=== PATIENT | male | born 1940 | race African-American/Black ===

== ENCOUNTER 2021-05-28 09:19 | Inpatient (IN) | payer MEDICARE ==
[~2021-05-28] VITALS: Ht 167.6 cm; Wt 68.0 kg
[2021-05-28 10:22] LABS: BASOPHILS % 0.4 % (0.0-1.0); EOSINOPHILS % 0.6 % (0.0-6.0); HEMOGLOBIN 8.3 g/dL (14.0-18.0); LYMPHOCYTES # (AUTO) 1.4 (1.0-3.2); LYMPHOCYTES % 19.4 % (18.0-39.1); MEAN CORPUSCULAR HEMOGLOBIN 29.4 pg (28-32); MEAN CORPUSCULAR HGB CONC 31.9 g/dL (31-35); MEAN CORPUSCULAR VOLUME 92.2 fL (81-99); MONOCYTES # (AUTO) 0.6 (0.2-0.8); MONOCYTES % 8.5 % (4.4-11.3); NEUTROPHILS % 68.6 % (38.7-80.0); PLATELET COUNT 213 x10e3/uL (140-360); RED BLOOD COUNT 2.82 x10e6/uL (4.3-5.7); RED CELL DISTRIBUTION WIDTH 17.2 % (11.7-14.4)
[2021-05-28 10:45] LABS: ALBUMIN 2.5 g/dL (3.5-5.0); ALBUMIN/GLOBULIN RATIO 0.6 (0.8-2.0); ANION GAP 16.2 mmol/L (8-16); CALCIUM 8.5 mg/dL (8.4-10.2); CREATININE, SERUM 1.6 mg/dL (0.72-1.25); MAGNESIUM 2.1 MG/DL (1.3-2.1); POTASSIUM 4.2 mmol/L (3.5-5.1)
[2021-05-28 10:52] LABS: CREATINE KINASE MB 0.5 ng/mL (0-5.0)
[2021-05-28 10:54] LABS: INR 1.27; PROTHROMBIN TIME 16.2 seconds (11.9-14.5)
[2021-05-28 10:55] LABS: PARTIAL THROMBOPLASTIN TIME 42.2 seconds (23.8-35.5)
[2021-05-28] MEDS ORDERED: SODIUM CHLORIDE 0.9% 1000ML 1,000 ML IV STA (11:33)
[2021-05-28] MEDS ORDERED: SODIUM CHLORIDE 0.9% 50ML 50 ML ONE (12:32)
[2021-05-28] MEDS ORDERED: IOPAMIDOL 370 MG/ML 200 ML INFUS..BTL INJ ONE (12:33)
[2021-05-28 15:56] LABS: CREATINE KINASE MB 0.5 ng/mL (0-5.0)
[2021-05-28] MEDS ORDERED: MORPHINE SULFATE INJ 2 MG/ML SYR IV PRN (16:45)
[2021-05-28] MEDS ORDERED: ONDANSETRON HCL INJ 2MG/ML 2ML 2 MG/ML VIAL IV PRN ×2 (16:45→20:30)
[2021-05-28 20:00] VITALS: BP 157/78
[2021-05-28] MEDS ORDERED: POLYETHYLENE GLYCOL 3350 17 GM PACK PO PRN (20:30)
[2021-05-28] MEDS ORDERED: HYDRALAZINE HCL 20 MG/ML VIAL IV PRN (20:30)
[2021-05-28] MEDS ORDERED: TEMAZEPAM 7.5 MG CAP PO PRN (20:30)
[2021-05-28] MEDS ORDERED: ACETAMINOPHEN 325 MG TAB PO PRN (20:30)
[2021-05-28] MEDS ORDERED: LACTULOSE SYRUP 20 GM/30 ML UDC PO PRN (21:00)
[2021-05-28] MEDS ORDERED: FAMOTIDINE 20 MG/2 ML VIAL IV SCH (21:00)
[2021-05-28] MEDS ORDERED: NORVASC5 MG PO (22:04)
[2021-05-28] MEDS ORDERED: LEVOFLOXACIN250 MG PO (22:04)
[2021-05-28] MEDS ORDERED: SENOKOTXTRA17.2 MG PO (22:04)
[2021-05-28] MEDS ORDERED: FEOSOL325 MG PO (22:04)
[2021-05-28] MEDS ORDERED: FLOMAX0.4 MG PO (22:04)
[2021-05-28 22:43] VITALS: BP 157/78
[2021-05-29] VITALS (8 sets, daily range): BP systolic 139–157; BP diastolic 58–91
[2021-05-29 01:03] LABS: CREATINE KINASE MB 0.4 ng/mL (0-5.0)
[2021-05-29 06:34] LABS: BASOPHILS % 0.3 % (0.0-1.0); EOSINOPHILS # (AUTO) 0.1 (0.0-0.4); EOSINOPHILS % 0.8 % (0.0-6.0); HEMATOCRIT 23.2 % (38.2-49.6); HEMOGLOBIN 7.4 g/dL (14.0-18.0); LYMPHOCYTES # (AUTO) 1.2 (1.0-3.2); LYMPHOCYTES % 19.8 % (18.0-39.1); MEAN CORPUSCULAR HEMOGLOBIN 29.2 pg (28-32); MEAN CORPUSCULAR HGB CONC 31.9 g/dL (31-35); MEAN CORPUSCULAR VOLUME 91.7 fL (81-99); MONOCYTES # (AUTO) 0.6 (0.2-0.8); MONOCYTES % 9.9 % (4.4-11.3); NEUTROPHILS # (AUTO) 4.2 (2.1-6.9); NEUTROPHILS % 66.6 % (38.7-80.0); PLATELET COUNT 219 x10e3/uL (140-360); RED BLOOD COUNT 2.53 x10e6/uL (4.3-5.7); RED CELL DISTRIBUTION WIDTH 17.2 % (11.7-14.4)
[2021-05-29 07:01] LABS: ALBUMIN 2.1 g/dL (3.5-5.0); ALBUMIN/GLOBULIN RATIO 0.5 (0.8-2.0); CALCIUM 8.1 mg/dL (8.4-10.2); CHOL/HDL RATIO 3.4 (3.9-4.7); CREATININE, SERUM 1.48 mg/dL (0.72-1.25)
[2021-05-29 07:08] LABS: CREATINE KINASE MB 0.4 ng/mL (0-5.0)
[2021-05-29 07:14] LABS: MAGNESIUM 2.1 MG/DL (1.3-2.1); PHOSPHORUS 3.1 MG/DL (2.3-4.7)
[2021-05-29] MEDS: FAMOTIDINE 20 MG TAB PO SCH ×2 (07:30→16:50)
[2021-05-29 07:35] LABS: THYROID STIMULATING HORMONE 2.21 uIU/mL (0.350-4.940)
[2021-05-29] MEDS: POLYETHYLENE GLYCOL 3350 17 GM PACK PO SCH ×2 (09:00→16:50)
[2021-05-29] MEDS: DOCUSATE SODIUM 100 MG CAP PO SCH ×2 (09:00→16:50)
[2021-05-29] MEDS: FERROUS SULFATE 325 MG TAB PO SCH ×2 (09:00→16:50)
[2021-05-29] MEDS: ASCORBIC ACID 500 MG TAB PO SCH ×2 (09:00→16:50)
[2021-05-29] MEDS ORDERED: EPOETIN ALFA-EPBX 10,000 UNIT/ML VIAL SC ONE (12:00)
[2021-05-29] MEDS: SENNOSIDES 8.6 MG TAB PO SCH (16:50)
[2021-05-29] MEDS: TAMSULOSIN HCL 0.4 MG CAP PO SCH (16:50)
[2021-05-29] MEDS: AMLODIPINE BESYLATE 5 MG TAB PO SCH (16:50)
[2021-05-29] MEDS: FUROSEMIDE INJ 10 MG/ML 4 ML VIAL IV SCH (16:50)
[2021-05-30] VITALS (9 sets, daily range): BP systolic 87–143; BP diastolic 45–73
[2021-05-30] MEDS: FAMOTIDINE 20 MG TAB PO SCH ×2 (08:11→17:40)
[2021-05-30] MEDS: FUROSEMIDE INJ 10 MG/ML 4 ML VIAL IV SCH (08:11)
[2021-05-30] MEDS: DOCUSATE SODIUM 100 MG CAP PO SCH ×2 (08:11→17:40)
[2021-05-30] MEDS: FERROUS SULFATE 325 MG TAB PO SCH ×2 (08:11→17:40)
[2021-05-30] MEDS: POLYETHYLENE GLYCOL 3350 17 GM PACK PO SCH ×2 (08:12→17:40)
[2021-05-30] MEDS: TAMSULOSIN HCL 0.4 MG CAP PO SCH (08:12)
[2021-05-30] MEDS: AMLODIPINE BESYLATE 5 MG TAB PO SCH (08:12)
[2021-05-30] MEDS: SENNOSIDES 8.6 MG TAB PO SCH (08:13)
[2021-05-30] MEDS: ASCORBIC ACID 500 MG TAB PO SCH ×2 (08:13→17:40)
[2021-05-31] VITALS (7 sets, daily range): BP systolic 120–146; BP diastolic 52–77
[2021-05-31 05:52] LABS: BASOPHILS % 0.5 % (0.0-1.0); EOSINOPHILS # (AUTO) 0.1 (0.0-0.4); EOSINOPHILS % 1.2 % (0.0-6.0); HEMOGLOBIN 7.4 g/dL (14.0-18.0); LYMPHOCYTES # (AUTO) 1.6 (1.0-3.2); LYMPHOCYTES % 27.8 % (18.0-39.1); MEAN CORPUSCULAR HEMOGLOBIN 29.7 pg (28-32); MEAN CORPUSCULAR HGB CONC 32.2 g/dL (31-35); MEAN CORPUSCULAR VOLUME 92.4 fL (81-99); MONOCYTES # (AUTO) 0.5 (0.2-0.8); MONOCYTES % 8.8 % (4.4-11.3); NEUTROPHILS # (AUTO) 3.4 (2.1-6.9); NEUTROPHILS % 57.5 % (38.7-80.0); PLATELET COUNT 225 x10e3/uL (140-360); RED BLOOD COUNT 2.49 x10e6/uL (4.3-5.7); RED CELL DISTRIBUTION WIDTH 17.2 % (11.7-14.4)
[2021-05-31 06:12] LABS: ALBUMIN 2.2 g/dL (3.5-5.0); ALBUMIN/GLOBULIN RATIO 0.6 (0.8-2.0); ANION GAP 13.9 mmol/L (8-16); CALCIUM 8.1 mg/dL (8.4-10.2); CREATININE, SERUM 1.69 mg/dL (0.72-1.25); PHOSPHORUS 3.6 MG/DL (2.3-4.7); POTASSIUM 3.9 mmol/L (3.5-5.1)
[2021-05-31] MEDS: FERROUS SULFATE 325 MG TAB PO SCH ×2 (07:57→16:52)
[2021-05-31] MEDS: ASCORBIC ACID 500 MG TAB PO SCH ×2 (07:57→16:52)
[2021-05-31] MEDS: POLYETHYLENE GLYCOL 3350 17 GM PACK PO SCH ×2 (07:57→16:52)
[2021-05-31] MEDS: AMLODIPINE BESYLATE 5 MG TAB PO SCH (07:57)
[2021-05-31] MEDS: DOCUSATE SODIUM 100 MG CAP PO SCH ×2 (07:57→16:52)
[2021-05-31] MEDS: FUROSEMIDE INJ 10 MG/ML 4 ML VIAL IV SCH (07:57)
[2021-05-31] MEDS: TAMSULOSIN HCL 0.4 MG CAP PO SCH (07:57)
[2021-05-31] MEDS: SENNOSIDES 8.6 MG TAB PO SCH (07:57)
[2021-05-31] MEDS: FAMOTIDINE 20 MG TAB PO SCH ×2 (07:57→16:52)
[2021-05-31] MEDS ORDERED: ONDANSETRON HCL 4 MG ORAL DISINTEGRATING TAB PO PRN (14:00)
== END 2021-05-31 18:47 | disposition home or self-care (01) | DRG 187 ==
LOC: ER 09:25 → ERHOLD 16:48 → MED/SURG 19:41
PROVIDERS: ADMIT Internal Medicine; ATTEND Internal Medicine
DX: J90 Pleural effusion, not elsewhere classified (principal); I31.3 Pericardial effusion (noninflammatory); R07.2 Precordial pain; F03.90 Unspecified dementia, unspecified severity, without behavioral disturbance, psychotic disturbance, mood disturbance, and anxiety; I10 Essential (primary) hypertension; D63.8 Anemia in other chronic diseases classified elsewhere; N40.1 Benign prostatic hyperplasia with lower urinary tract symptoms; R33.8 Other retention of urine; E11.65 Type 2 diabetes mellitus with hyperglycemia; R74.8 Abnormal levels of other serum enzymes; E78.5 Hyperlipidemia, unspecified; N28.9 Disorder of kidney and ureter, unspecified; I08.0 Rheumatic disorders of both mitral and aortic valves
CPT/HCPCS: 36415; 71045; 71260; 74019; 76705; 80053; 80061; 82550; 82553; 82607; 82728; 82746; 82948; 83036; 83540; 83735; 83880; 84100; 84443; 84466; 84484; 85025; 85045; 85379; 85610; 85730; 93005; 93306; 99251; 99284; J1940; J7030; Q9967; U0002

== ENCOUNTER 2021-06-04 17:25 | Inpatient (IN) | payer MEDICARE ==
[~2021-06-04] VITALS: Ht 167.6 cm; Wt 58.6 kg
[~2021-06-04 17:25] MED LIST: FEOSOL325 MG PO; FLOMAX0.4 MG PO; LEVOFLOXACIN250 MG PO; NORVASC5 MG PO; SENOKOTXTRA17.2 MG PO
[2021-06-04] MEDS ORDERED: ACETAMINOPHEN 325 MG TAB PO ONE ×2 (18:00)
[2021-06-04] MEDS ORDERED: CEFEPIME 1 GM in SODIUM CHLORIDE 0.9% 50ML 50 ML IV ONE (18:00)
[2021-06-04] MEDS ORDERED: ACETAMINOPHEN 325 MG TAB ONE (18:02)
[2021-06-04 18:03] LABS: BASOPHILS % 0.1 % (0.0-1.0); EOSINOPHILS % 0.1 % (0.0-6.0); HEMOGLOBIN 7.2 g/dL (14.0-18.0); LYMPHOCYTES # (AUTO) 1.7 (1.0-3.2); LYMPHOCYTES % 21.5 % (18.0-39.1); MEAN CORPUSCULAR HGB CONC 31.3 g/dL (31-35); MEAN CORPUSCULAR VOLUME 92.7 fL (81-99); MONOCYTES # (AUTO) 0.7 (0.2-0.8); MONOCYTES % 9.5 % (4.4-11.3); NEUTROPHILS # (AUTO) 5.2 (2.1-6.9); NEUTROPHILS % 67.3 % (38.7-80.0); PLATELET COUNT 237 x10e3/uL (140-360); RED BLOOD COUNT 2.48 x10e6/uL (4.3-5.7); RED CELL DISTRIBUTION WIDTH 17.3 % (11.7-14.4)
[2021-06-04] MEDS: SODIUM CHLORIDE 0.9% 1000ML 1,000 ML IV SCH ×3 (18:12→23:30)
[2021-06-04 18:21] LABS: ALBUMIN 2.3 g/dL (3.5-5.0); ALBUMIN/GLOBULIN RATIO 0.5 (0.8-2.0); ANION GAP 17.3 mmol/L (8-16); CREATININE, SERUM 1.68 mg/dL (0.72-1.25); POTASSIUM 4.3 mmol/L (3.5-5.1)
[2021-06-04 18:27] LABS: CREATINE KINASE MB 0.5 ng/mL (0-5.0)
[2021-06-04 18:32] LABS: B-TYPE NATRIURETIC PEPTIDE2 40.1 pg/mL (0-100)
[2021-06-04] MEDS ORDERED: SODIUM CHLORIDE 0.9% 50ML 50 ML ONE (18:57)
[2021-06-04] MEDS ORDERED: IOPAMIDOL 370 MG/ML 200 ML INFUS..BTL INJ ONE (18:57)
[2021-06-04 19:01] LABS: CLARITY,URINE HAZY (CLEAR); COLOR,URINE YELLOW (YELLOW); LEUKOCYTE ESTERASE ,URINE SMALL (NEGATIVE)
[2021-06-04 19:02] LABS: KETONES,URINE NEGATIVE (NEGATIVE); NITRITE,URINE NEGATIVE (NEGATIVE); PROTEIN,URINE DIPSTICK 2+ (NEGATIVE); RBC,URINE 21-50 /HPF (0-5); URINE UROBILINOGEN 0.2 mg/dL (0.2 - 1); WBC,URINE (MAN) >50 /HPF (0-5)
[2021-06-04 19:03] LABS: AMORPHOUS SEDIMENT,URINE FEW (FEW); BACTERIA,URINE MANY /HPF; EPITHELIAL CELLS,URINE FEW /LPF; MUCUS,URINE MODERATE (RARE); YEAST,URINE FEW
[2021-06-04 22:11] VITALS: BP 105/52
[2021-06-05] VITALS (12 sets, daily range): BP systolic 105–150; BP diastolic 51–76
[2021-06-05] MEDS ORDERED: POLYETHYLENE GLYCOL 3350 17 GM PACK PO PRN (01:00)
[2021-06-05] MEDS ORDERED: ONDANSETRON HCL INJ 2MG/ML 2ML 2 MG/ML VIAL IV PRN (01:00)
[2021-06-05] MEDS ORDERED: ACETAMINOPHEN 325 MG TAB PO PRN (01:00)
[2021-06-05] MEDS ORDERED: HYDRALAZINE HCL 20 MG/ML VIAL IV PRN (01:00)
[2021-06-05 05:47] LABS: BASOPHILS % 0.3 % (0.0-1.0); EOSINOPHILS % 0.6 % (0.0-6.0); HEMATOCRIT 22.4 % (38.2-49.6); HEMOGLOBIN 7.1 g/dL (14.0-18.0); LYMPHOCYTES # (AUTO) 1.4 (1.0-3.2); LYMPHOCYTES % 19.6 % (18.0-39.1); MEAN CORPUSCULAR HEMOGLOBIN 29.7 pg (28-32); MEAN CORPUSCULAR HGB CONC 31.7 g/dL (31-35); MEAN CORPUSCULAR VOLUME 93.7 fL (81-99); MONOCYTES # (AUTO) 0.8 (0.2-0.8); MONOCYTES % 11.4 % (4.4-11.3); NEUTROPHILS # (AUTO) 4.6 (2.1-6.9); NEUTROPHILS % 66.4 % (38.7-80.0); PLATELET COUNT 223 x10e3/uL (140-360); RED BLOOD COUNT 2.39 x10e6/uL (4.3-5.7); RED CELL DISTRIBUTION WIDTH 17.2 % (11.7-14.4)
[2021-06-05 06:09] LABS: ALBUMIN 2.1 g/dL (3.5-5.0); ALBUMIN/GLOBULIN RATIO 0.5 (0.8-2.0); ANION GAP 13.9 mmol/L (8-16); CALCIUM 8.6 mg/dL (8.4-10.2); CREATININE, SERUM 1.5 mg/dL (0.72-1.25); POTASSIUM 3.9 mmol/L (3.5-5.1)
[2021-06-05 06:27] LABS: MAGNESIUM 2.1 MG/DL (1.3-2.1); PHOSPHORUS 3.8 MG/DL (2.3-4.7)
[2021-06-05] MEDS: SODIUM CHLORIDE 0.9% 1000ML 1,000 ML IV SCH ×2 (07:13→11:01)
[2021-06-05] MEDS: DOCUSATE SODIUM 100 MG CAP PO SCH ×2 (09:02→16:36)
[2021-06-05] MEDS: CEFTRIAXONE 1 GM in SODIUM CHLORIDE 0.9% 50ML 50 ML IV SCH (09:02)
[2021-06-05] MEDS: FAMOTIDINE 20 MG TAB PO SCH ×2 (09:02→17:36)
[2021-06-05] MEDS ORDERED: DEXTROSE 50% SYRINGE 50 ML IV PRN (12:15)
[2021-06-05 12:46] LABS: FREE T4 (FREE THYROXINE) 0.84 ng/dL (0.8-1.8); THYROID STIMULATING HORMONE 1.77 uIU/mL (0.350-4.940)
[2021-06-05] MEDS: INSULIN LISPRO 100 UNIT/1 ML 3ML VIAL SQ SCH ×2 (16:30→21:00)
[2021-06-05] MEDS: FERROUS SULFATE 325 MG TAB PO SCH (17:36)
[2021-06-05] MEDS: FUROSEMIDE INJ 10 MG/ML 2 ML VIAL IV SCH (17:36)
[2021-06-05] MEDS ORDERED: SENNA-S TABLET PO SCH (21:00)
[2021-06-06] VITALS (8 sets, daily range): BP systolic 122–150; BP diastolic 49–78
[2021-06-06] MEDS: FUROSEMIDE INJ 10 MG/ML 2 ML VIAL IV SCH (06:18)
[2021-06-06] MEDS: INSULIN LISPRO 100 UNIT/1 ML 3ML VIAL SQ SCH ×4 (07:30→21:25)
[2021-06-06 08:10] LABS: ALBUMIN/GLOBULIN RATIO 0.5 (0.8-2.0); ANION GAP 15.9 mmol/L (8-16); CALCIUM 8.1 mg/dL (8.4-10.2); CREATININE, SERUM 1.64 mg/dL (0.72-1.25); POTASSIUM 3.9 mmol/L (3.5-5.1)
[2021-06-06] MEDS: CEFTRIAXONE 1 GM in SODIUM CHLORIDE 0.9% 50ML 50 ML IV SCH (08:55)
[2021-06-06] MEDS: FAMOTIDINE 20 MG TAB PO SCH ×2 (08:55→17:16)
[2021-06-06] MEDS: AMLODIPINE BESYLATE 5 MG TAB PO SCH (08:56)
[2021-06-06] MEDS: TAMSULOSIN HCL 0.4 MG CAP PO SCH (08:56)
[2021-06-06] MEDS: SENNOSIDES 8.6 MG TAB PO SCH (08:56)
[2021-06-06] MEDS: FERROUS SULFATE 325 MG TAB PO SCH ×2 (08:56→17:16)
[2021-06-06] MEDS: DOCUSATE SODIUM 100 MG CAP PO SCH ×2 (08:56→17:00)
[2021-06-06] MEDS ORDERED: SODIUM CHLORIDE 0.9% 250ML 250 ML ONE (08:57)
[2021-06-06] MEDS ORDERED: SENNOSIDES PO SCH (09:00)
[2021-06-06 11:20] LABS: BASOPHILS % 0.3 % (0.0-1.0); EOSINOPHILS # (AUTO) 0.1 (0.0-0.4); EOSINOPHILS % 0.8 % (0.0-6.0); HEMATOCRIT 23.2 % (38.2-49.6); HEMOGLOBIN 7.2 g/dL (14.0-18.0); LYMPHOCYTES # (AUTO) 1.2 (1.0-3.2); LYMPHOCYTES % 19.8 % (18.0-39.1); MEAN CORPUSCULAR HEMOGLOBIN 29.1 pg (28-32); MEAN CORPUSCULAR VOLUME 93.9 fL (81-99); MONOCYTES # (AUTO) 0.5 (0.2-0.8); MONOCYTES % 8.6 % (4.4-11.3); NEUTROPHILS # (AUTO) 4.1 (2.1-6.9); NEUTROPHILS % 68.4 % (38.7-80.0); PLATELET COUNT 252 x10e3/uL (140-360); RED BLOOD COUNT 2.47 x10e6/uL (4.3-5.7); RED CELL DISTRIBUTION WIDTH 17.5 % (11.7-14.4)
[2021-06-07] VITALS (8 sets, daily range): BP systolic 138–165; BP diastolic 61–76
[2021-06-07 06:30] LABS: BASOPHILS % 0.2 % (0.0-1.0); EOSINOPHILS # (AUTO) 0.1 (0.0-0.4); EOSINOPHILS % 0.9 % (0.0-6.0); HEMATOCRIT 22.2 % (38.2-49.6); LYMPHOCYTES # (AUTO) 1.2 (1.0-3.2); LYMPHOCYTES % 22.2 % (18.0-39.1); MEAN CORPUSCULAR HEMOGLOBIN 29.3 pg (28-32); MEAN CORPUSCULAR HGB CONC 31.5 g/dL (31-35); MEAN CORPUSCULAR VOLUME 92.9 fL (81-99); MONOCYTES # (AUTO) 0.5 (0.2-0.8); MONOCYTES % 8.6 % (4.4-11.3); NEUTROPHILS # (AUTO) 3.5 (2.1-6.9); NEUTROPHILS % 64.1 % (38.7-80.0); PLATELET COUNT 229 x10e3/uL (140-360); RED BLOOD COUNT 2.39 x10e6/uL (4.3-5.7); RED CELL DISTRIBUTION WIDTH 17.3 % (11.7-14.4)
[2021-06-07 06:54] LABS: ALBUMIN 2.2 g/dL (3.5-5.0); ALBUMIN/GLOBULIN RATIO 0.6 (0.8-2.0); ANION GAP 15.4 mmol/L (8-16); CALCIUM 8.3 mg/dL (8.4-10.2); CREATININE, SERUM 1.43 mg/dL (0.72-1.25); POTASSIUM 3.4 mmol/L (3.5-5.1)
[2021-06-07] MEDS: INSULIN LISPRO 100 UNIT/1 ML 3ML VIAL SQ SCH ×4 (07:30→21:00)
[2021-06-07] MEDS: CEFTRIAXONE 1 GM in SODIUM CHLORIDE 0.9% 50ML 50 ML IV SCH (08:41)
[2021-06-07] MEDS: FAMOTIDINE 20 MG TAB PO SCH ×2 (08:41→17:41)
[2021-06-07] MEDS: AMLODIPINE BESYLATE 5 MG TAB PO SCH (08:41)
[2021-06-07] MEDS: SENNOSIDES 8.6 MG TAB PO SCH (08:41)
[2021-06-07] MEDS: FERROUS SULFATE 325 MG TAB PO SCH ×2 (08:41→17:41)
[2021-06-07] MEDS: TAMSULOSIN HCL 0.4 MG CAP PO SCH (08:41)
[2021-06-07] MEDS: DOCUSATE SODIUM 100 MG CAP PO SCH ×2 (08:41→17:41)
[2021-06-07] MEDS: EPOETIN ALFA-EPBX 10,000 UNIT/ML VIAL SC SCH (10:34)
[2021-06-07] MEDS ORDERED: LORAZEPAM INJ 2 MG/ML VIAL IV PRN (15:30)
[2021-06-07] MEDS: QUETIAPINE FUMARATE 25 MG TAB PO SCH (21:58)
[2021-06-08] VITALS (8 sets, daily range): BP systolic 106–152; BP diastolic 58–77
[2021-06-08 05:26] LABS: BASOPHILS % 0.2 % (0.0-1.0); EOSINOPHILS # (AUTO) 0.1 (0.0-0.4); HEMATOCRIT 21.3 % (38.2-49.6); LYMPHOCYTES # (AUTO) 1.3 (1.0-3.2); LYMPHOCYTES % 28.9 % (18.0-39.1); MEAN CORPUSCULAR HEMOGLOBIN 29.1 pg (28-32); MEAN CORPUSCULAR HGB CONC 31.5 g/dL (31-35); MEAN CORPUSCULAR VOLUME 92.6 fL (81-99); MONOCYTES # (AUTO) 0.4 (0.2-0.8); MONOCYTES % 8.3 % (4.4-11.3); NEUTROPHILS # (AUTO) 2.6 (2.1-6.9); NEUTROPHILS % 55.8 % (38.7-80.0); PLATELET COUNT 214 x10e3/uL (140-360); RED CELL DISTRIBUTION WIDTH 17.5 % (11.7-14.4)
[2021-06-08 05:33] LABS: HEMOGLOBIN 6.7 g/dL (14.0-18.0)
[2021-06-08 05:55] LABS: ALBUMIN/GLOBULIN RATIO 0.5 (0.8-2.0); ANION GAP 12.5 mmol/L (8-16); CALCIUM 7.9 mg/dL (8.4-10.2); CREATININE, SERUM 1.53 mg/dL (0.72-1.25); POTASSIUM 3.5 mmol/L (3.5-5.1)
[2021-06-08] MEDS ORDERED: SODIUM CHLORIDE 0.9% 250ML 250 ML IV ONE (06:00)
[2021-06-08] MEDS: INSULIN LISPRO 100 UNIT/1 ML 3ML VIAL SQ SCH ×4 (07:30→21:00)
[2021-06-08] MEDS: SENNOSIDES 8.6 MG TAB PO SCH (08:50)
[2021-06-08] MEDS: FAMOTIDINE 20 MG TAB PO SCH ×2 (08:50→16:30)
[2021-06-08] MEDS: TAMSULOSIN HCL 0.4 MG CAP PO SCH (08:50)
[2021-06-08] MEDS: FERROUS SULFATE 325 MG TAB PO SCH ×2 (08:50→17:00)
[2021-06-08] MEDS: DOCUSATE SODIUM 100 MG CAP PO SCH ×2 (08:50→17:00)
[2021-06-08] MEDS: CEFTRIAXONE 1 GM in SODIUM CHLORIDE 0.9% 50ML 50 ML IV SCH (08:50)
[2021-06-08] MEDS: AMLODIPINE BESYLATE 5 MG TAB PO SCH (08:50)
[2021-06-08] MEDS: FLUCONAZOLE 200 MG/100 ML 100 ML IV SCH (10:36)
[2021-06-08] MEDS ORDERED: SODIUM CHLORIDE 0.9% 250ML 250 ML ONE ×2 (14:04→18:33)
[2021-06-08] MEDS: QUETIAPINE FUMARATE 25 MG TAB PO SCH (21:21)
[2021-06-09] VITALS (8 sets, daily range): BP systolic 141–166; BP diastolic 65–86
[2021-06-09 04:55] LABS: BASOPHILS % 0.7 % (0.0-1.0); EOSINOPHILS # (AUTO) 0.1 (0.0-0.4); EOSINOPHILS % 1.9 % (0.0-6.0); HEMATOCRIT 28.4 % (38.2-49.6); HEMOGLOBIN 9.2 g/dL (14.0-18.0); LYMPHOCYTES # (AUTO) 1.4 (1.0-3.2); LYMPHOCYTES % 25.2 % (18.0-39.1); MEAN CORPUSCULAR HEMOGLOBIN 29.5 pg (28-32); MEAN CORPUSCULAR HGB CONC 32.4 g/dL (31-35); MONOCYTES # (AUTO) 0.5 (0.2-0.8); MONOCYTES % 8.6 % (4.4-11.3); NEUTROPHILS # (AUTO) 3.3 (2.1-6.9); NEUTROPHILS % 57.8 % (38.7-80.0); PLATELET COUNT 215 x10e3/uL (140-360); RED BLOOD COUNT 3.12 x10e6/uL (4.3-5.7); RED CELL DISTRIBUTION WIDTH 18.5 % (11.7-14.4)
[2021-06-09 05:21] LABS: ANION GAP 13.5 mmol/L (8-16); CALCIUM 7.9 mg/dL (8.4-10.2); CREATININE, SERUM 1.51 mg/dL (0.72-1.25); POTASSIUM 3.5 mmol/L (3.5-5.1)
[2021-06-09] MEDS: INSULIN LISPRO 100 UNIT/1 ML 3ML VIAL SQ SCH ×4 (07:30→20:22)
[2021-06-09] MEDS: FAMOTIDINE 20 MG TAB PO SCH ×2 (08:22→16:48)
[2021-06-09] MEDS: DOCUSATE SODIUM 100 MG CAP PO SCH ×2 (08:22→16:48)
[2021-06-09] MEDS: TAMSULOSIN HCL 0.4 MG CAP PO SCH (08:23)
[2021-06-09] MEDS: FLUCONAZOLE 200 MG/100 ML 100 ML IV SCH (08:23)
[2021-06-09] MEDS: SENNOSIDES 8.6 MG TAB PO SCH (08:23)
[2021-06-09] MEDS: FERROUS SULFATE 325 MG TAB PO SCH ×2 (08:23→16:48)
[2021-06-09] MEDS: EPOETIN ALFA-EPBX 10,000 UNIT/ML VIAL SC SCH (08:23)
[2021-06-09] MEDS: AMLODIPINE BESYLATE 5 MG TAB PO SCH (08:23)
[2021-06-09] MEDS: QUETIAPINE FUMARATE 25 MG TAB PO SCH (20:22)
[2021-06-10] VITALS (8 sets, daily range): BP systolic 137–161; BP diastolic 63–92
[2021-06-10 06:50] LABS: BASOPHILS % 0.7 % (0.0-1.0); EOSINOPHILS # (AUTO) 0.1 (0.0-0.4); HEMATOCRIT 29.4 % (38.2-49.6); HEMOGLOBIN 9.3 g/dL (14.0-18.0); LYMPHOCYTES # (AUTO) 1.7 (1.0-3.2); MEAN CORPUSCULAR HEMOGLOBIN 29.1 pg (28-32); MEAN CORPUSCULAR HGB CONC 31.6 g/dL (31-35); MEAN CORPUSCULAR VOLUME 91.9 fL (81-99); MONOCYTES # (AUTO) 0.5 (0.2-0.8); MONOCYTES % 7.6 % (4.4-11.3); NEUTROPHILS # (AUTO) 3.3 (2.1-6.9); NEUTROPHILS % 54.8 % (38.7-80.0); PLATELET COUNT 220 x10e3/uL (140-360); RED CELL DISTRIBUTION WIDTH 18.1 % (11.7-14.4)
[2021-06-10] MEDS: INSULIN LISPRO 100 UNIT/1 ML 3ML VIAL SQ SCH ×4 (07:27→21:10)
[2021-06-10 07:49] LABS: ANION GAP 13.2 mmol/L (8-16); CREATININE, SERUM 1.64 mg/dL (0.72-1.25); POTASSIUM 4.2 mmol/L (3.5-5.1)
[2021-06-10] MEDS: FLUCONAZOLE 200 MG/100 ML 100 ML IV SCH (07:59)
[2021-06-10] MEDS: AMLODIPINE BESYLATE 5 MG TAB PO SCH (07:59)
[2021-06-10] MEDS: FERROUS SULFATE 325 MG TAB PO SCH ×2 (07:59→15:25)
[2021-06-10] MEDS: SENNOSIDES 8.6 MG TAB PO SCH (07:59)
[2021-06-10] MEDS: DOCUSATE SODIUM 100 MG CAP PO SCH ×2 (07:59→15:25)
[2021-06-10] MEDS: FAMOTIDINE 20 MG TAB PO SCH ×2 (07:59→15:25)
[2021-06-10] MEDS: TAMSULOSIN HCL 0.4 MG CAP PO SCH (07:59)
[2021-06-10 08:41] LABS: EOSINOPHILS % (MANUAL) 1 % (0-7); LYMPHOCYTES % (MANUAL) 22 % (19-48); METAMYELOCYTES % (MANUAL) 1 % (0-0); MONOCYTES % (MANUAL) 5 % (3.4-9.0); NEUTROPHILS % (MANUAL) 71 % (40-74); NUCLEATED RED BLOOD CELLS 3; PLATELET ESTIMATE ADEQUATE; PLATELET MORPHOLOGY COMMENT NORMAL; RBC MORPHOLOGY COMMENT NORMAL
[2021-06-10] MEDS: QUETIAPINE FUMARATE 25 MG TAB PO SCH (21:12)
[2021-06-11] VITALS (7 sets, daily range): BP systolic 140–166; BP diastolic 65–97
[2021-06-11 06:46] LABS: BASOPHILS % 0.7 % (0.0-1.0); EOSINOPHILS # (AUTO) 0.1 (0.0-0.4); EOSINOPHILS % 2.2 % (0.0-6.0); HEMATOCRIT 30.5 % (38.2-49.6); HEMOGLOBIN 9.7 g/dL (14.0-18.0); LYMPHOCYTES # (AUTO) 1.4 (1.0-3.2); LYMPHOCYTES % 23.8 % (18.0-39.1); MEAN CORPUSCULAR HGB CONC 31.8 g/dL (31-35); MONOCYTES # (AUTO) 0.5 (0.2-0.8); MONOCYTES % 8.7 % (4.4-11.3); NEUTROPHILS # (AUTO) 3.3 (2.1-6.9); NEUTROPHILS % 56.4 % (38.7-80.0); PLATELET COUNT 229 x10e3/uL (140-360); RED BLOOD COUNT 3.35 x10e6/uL (4.3-5.7); RED CELL DISTRIBUTION WIDTH 17.5 % (11.7-14.4)
[2021-06-11 07:14] LABS: ANION GAP 14.8 mmol/L (8-16); CALCIUM 8.1 mg/dL (8.4-10.2); CREATININE, SERUM 1.46 mg/dL (0.72-1.25); POTASSIUM 3.8 mmol/L (3.5-5.1)
[2021-06-11] MEDS: INSULIN LISPRO 100 UNIT/1 ML 3ML VIAL SQ SCH ×3 (07:30→15:18)
[2021-06-11] MEDS: FAMOTIDINE 20 MG TAB PO SCH ×2 (08:42→16:12)
[2021-06-11] MEDS: DOCUSATE SODIUM 100 MG CAP PO SCH ×2 (08:42→16:12)
[2021-06-11] MEDS: SENNOSIDES 8.6 MG TAB PO SCH (08:43)
[2021-06-11] MEDS: TAMSULOSIN HCL 0.4 MG CAP PO SCH (08:43)
[2021-06-11] MEDS: AMLODIPINE BESYLATE 5 MG TAB PO SCH (08:43)
[2021-06-11] MEDS: FERROUS SULFATE 325 MG TAB PO SCH ×2 (09:00→16:12)
[2021-06-11] MEDS: FLUCONAZOLE 200 MG/100 ML 100 ML IV SCH (12:04)
[2021-06-11] MEDS ORDERED: FLUCONAZOL200 MG/100 IV (12:55)
[2021-06-11] MEDS ORDERED: ACETAMINOPHEN325 M1 PO (12:55)
[2021-06-11] MEDS ORDERED: COLACE100 MG PO (12:55)
[2021-06-11] MEDS ORDERED: MIRALAX17 GM PO (12:55)
[2021-06-11] MEDS ORDERED: FAMOTIDINE20 MG PO (12:55)
[2021-06-11] MEDS ORDERED: SEROQUEL25 MG PO (12:55)
[2021-06-11] MEDS ORDERED: RETACRIT10000 UNIT SC (12:55)
[2021-06-11] MEDS ORDERED: Insulin Lispro SQ (12:55)
[2021-06-11] MEDS ORDERED: SENOKOT8.6 MG PO (12:55)
== END 2021-06-11 20:00 | DRG 727 ==
LOC: ER 17:52 → ERHOLD 19:10 → MED/SURG3 21:58
PROVIDERS: ADMIT Internal Medicine; ATTEND Internal Medicine
DX: B37.49 Other urogenital candidiasis (principal); G93.41 Metabolic encephalopathy; F03.91 Unspecified dementia, unspecified severity, with behavioral disturbance; E11.9 Type 2 diabetes mellitus without complications; R26.89 Other abnormalities of gait and mobility; C61 Malignant neoplasm of prostate; D63.8 Anemia in other chronic diseases classified elsewhere; I10 Essential (primary) hypertension; Z79.4 Long term (current) use of insulin
CPT/HCPCS: 36415; 71045; 71260; 74177; 80048; 80053; 81001; 82550; 82553; 82948; 83036; 83605; 83735; 83880; 84100; 84439; 84443; 84484; 85025; 86850; 86900; 86920; 87040; 87086; 93005; 96372; 97139; 99251; 99284; J0360; J0696; J1450; J1940; J7030; J7050; P9016; Q9967; U0002

== ENCOUNTER 2021-06-29 17:42 | Emergency (ER) | payer MEDICARE ==
[~2021-06-29] VITALS: Ht 320 cm; Wt 58.5 kg
[~2021-06-29 17:42] MED LIST changes: +ACETAMINOPHEN325 M1 PO; +COLACE100 MG PO; +FAMOTIDINE20 MG PO; +FLUCONAZOL200 MG/100 IV; +Insulin Lispro SQ; +MIRALAX17 GM PO; +RETACRIT10000 UNIT SC; +SENOKOT8.6 MG PO; +SEROQUEL25 MG PO
[2021-06-29 18:31] LABS: BASOPHILS % 0.6 % (0.0-1.0); EOSINOPHILS # (AUTO) 0.1 (0.0-0.4); EOSINOPHILS % 1.3 % (0.0-6.0); HEMATOCRIT 24.2 % (38.2-49.6); HEMOGLOBIN 7.5 g/dL (14.0-18.0); LYMPHOCYTES # (AUTO) 0.9 (1.0-3.2); LYMPHOCYTES % 16.4 % (18.0-39.1); MEAN CORPUSCULAR VOLUME 90.3 fL (81-99); MONOCYTES # (AUTO) 0.4 (0.2-0.8); MONOCYTES % 8.2 % (4.4-11.3); NEUTROPHILS # (AUTO) 3.8 (2.1-6.9); NEUTROPHILS % 70.9 % (38.7-80.0); PLATELET COUNT 165 x10e3/uL (140-360); RED BLOOD COUNT 2.68 x10e6/uL (4.3-5.7); RED CELL DISTRIBUTION WIDTH 17.2 % (11.7-14.4)
[2021-06-29 18:38] LABS: CLARITY,URINE SL CLOUDY (CLEAR); COLOR,URINE YELLOW (YELLOW); KETONES,URINE NEGATIVE (NEGATIVE); LEUKOCYTE ESTERASE ,URINE NEGATIVE (NEGATIVE); NITRITE,URINE NEGATIVE (NEGATIVE); PROTEIN,URINE DIPSTICK 2+ (NEGATIVE)
[2021-06-29 18:41] LABS: URINE UROBILINOGEN 0.2 mg/dL (0.2 - 1)
[2021-06-29 18:50] LABS: BACTERIA,URINE FEW /HPF; WBC,URINE (MAN) 0-5 /HPF (0-5)
[2021-06-29 18:52] LABS: ALBUMIN 2.2 g/dL (3.5-5.0); ALBUMIN/GLOBULIN RATIO 0.5 (0.8-2.0); ANION GAP 16.6 mmol/L (8-16); CALCIUM 8.1 mg/dL (8.4-10.2); CREATININE, SERUM 1.85 mg/dL (0.72-1.25); POTASSIUM 3.6 mmol/L (3.5-5.1)
[2021-06-29 19:01] LABS: CREATINE KINASE MB 1.1 ng/mL (0-5.0)
[2021-06-29 23:29] VITALS: BP 138/73
== END 2021-06-29 23:10 | disposition other institution (70) ==
LOC: ER 17:45
DX: S06.5X0A Traumatic subdural hemorrhage without loss of consciousness, initial encounter (principal); R41.0 Disorientation, unspecified; R73.9 Hyperglycemia, unspecified; N28.9 Disorder of kidney and ureter, unspecified; D64.9 Anemia, unspecified; Z20.822 Contact with and (suspected) exposure to COVID-19; R94.31 Abnormal electrocardiogram [ECG] [EKG]
CPT/HCPCS: 36415; 70450; 71045; 80053; 81001; 82550; 82553; 84484; 85025; 87086; 93005; 99284; U0002